=== PATIENT | male | born 1960 | race Caucasian/White ===

== ENCOUNTER → 2023-09-17 06:29 | Day surgery (SDC) | payer BC, SELFPAY | LOC: GI 06:29 | PROVIDERS: ATTENDING PHYSICIAN Internal Medicine; FAMILY PHYSICIAN Internal Medicine | DX: Z12.11 Encounter for screening for malignant neoplasm of colon (principal); D12.2 Benign neoplasm of ascending colon; D12.5 Benign neoplasm of sigmoid colon; K63.5 Polyp of colon; K64.4 Residual hemorrhoidal skin tags; K56.2 Volvulus; Z79.01 Long term (current) use of anticoagulants | CPT/HCPCS: 45385; 45380; 88305 ==

== ENCOUNTER 2023-10-07 21:09 | Emergency (ER) | payer BC, SELFPAY ==
[2023-10-07 21:09] VITALS: BMI 39.3
[2023-10-07 21:13] VITALS: BP 139/75
--- NOTE | 2023-10-07 22:47 | ED.SKININJ ---
HPI-Injury
<ROSY Oliva - Last Filed: 10/07/23 23:19>
General
Chief Complaint: Skin Problem
Source: patient and spouse
Exam Limitations: none
Time Seen by Provider: 10/07/23 21:59
Travel History
Have you had any contact with someone who has COVID-19?: No
Do you have any symptoms of coronavirus? Fever > 100 degrees, chills, cough, shortness of breath, sore throat, loss of taste or smell, muscle aches, or headache?: No
History of Present Illness-Injury
Initial Injury comments:
63 YO M with PMH of pre-diabetes managed with Metformin and HTN managed with medication presents here tonight for a cyst located on the patient's right breast. Pt states he noticed the cyst about 1 year ago. He was told it was a sebaceous cyst. One
year ago, it was about the size of a marble. Patient states the cyst started to bother him yesterday, causing him pain, which led him to see his well service derrick worker today at 1 p.m. The well service derrick worker drained his cyst in office. Pt states white/yellow pus
came out. The well service derrick worker informed the patient to report to the ED if the redness starts to spread. Pt states the redness has spread since the appointment. He denies fever, chills, or pain. Denies CP or SOB.
Review of Systems
<ROSY Oliva - Last Filed: 10/07/23 23:19>
Review of Systems
Constitutional: Reports no symptoms
EENT: Reports no symptoms
Cardiac: Reports no symptoms
ABD/GI: Reports no symptoms
: Reports no symptoms
Musculoskeletal: Reports no symptoms
Skin: Reports other (Right sided breast sebaceous cyst - Erythematous with mild pain )
Neurological: Reports no symptoms
Phy Exam
<ROSY Oliva - Last Filed: 10/07/23 23:19>
Physical Exam
Physical Exam:
Bleeding at site of right breast where cyst was drained, inflamed with surrounding erythema
Normal S1 and S2, breath sounds are clear and equal bilaterally
General Physical Exam
General Presentation: well appearing
General age: appears stated age
General Skin: warm
General Habitus: normal
General Mental: alert
General Hydration: appears well hydrated
Cardiovascular Exam
Cardiovascular Exam: regular rate/rhythm
Pulmonary Exam
Pulmonary Exam: lungs clear and no respiratory distress
Course
<Crystal Marquez [facility] - Last Filed: 10/07/23 23:19>
Orders/Labs/Results
Orders:
Orders
10/07/23 22:46
Basic Metabolic Panel Urgent
Complete Blood Count/With Diff Urgent
10/07/23 23:06
Vancomycin [Vancocin] 2,000 mg 0.9% Sodium Chloride 500 ml [Nss] 500 ml IV NOW
Abnormal Lab Results
10/07/23
22:46
RBC 4.30 L 10^6/uL
(4.70-6.10)
Hgb 12.9 L g/dL
(13.0-18.0)
Hct 37.1 L %
(39.0-52.0)
Absolute Monos (auto) 0.9 H 10^3/uL
(0.1-0.6)
Monocytes % 11.6 H %
(1.7-9.3)
BUN 36 H mg/dl
(9-20)
Creatinine 0.6 L mg/dL
(0.7-1.3)
10/07/23 22:46
10/07/23 22:46
Vital Signs
Initial and Last Documented VS:
Initial Vital Signs
Temp Pulse Resp BP Pulse Ox
98.0 F 75 18 139/75 98
10/07/23 21:13 10/07/23 21:13 10/07/23 21:13 10/07/23 21:13 10/07/23 21:13
Last Documented Vital Signs
Temp Pulse Resp BP Pulse Ox
98.0 F 75 18 122/71 93
10/07/23 21:13 10/07/23 21:13 10/07/23 21:13 10/08/23 00:00 10/08/23 00:45
<Shahla Weiss, DO - Last Filed: 10/08/23 01:12>
Orders/Labs/Results
Orders:
Orders
10/07/23 22:46
Basic Metabolic Panel Urgent
Complete Blood Count/With Diff Urgent
10/07/23 23:06
Vancomycin [Vancocin] 2,000 mg 0.9% Sodium Chloride 500 ml [Nss] 500 ml IV NOW
Abnormal Lab Results
10/07/23
22:46
RBC 4.30 L 10^6/uL
(4.70-6.10)
Hgb 12.9 L g/dL
(13.0-18.0)
Hct 37.1 L %
(39.0-52.0)
Absolute Monos (auto) 0.9 H 10^3/uL
(0.1-0.6)
Monocytes % 11.6 H %
(1.7-9.3)
BUN 36 H mg/dl
(9-20)
Creatinine 0.6 L mg/dL
(0.7-1.3)
10/07/23 22:46
10/07/23 22:46
Vital Signs
Initial and Last Documented VS:
Initial Vital Signs
Temp Pulse Resp BP Pulse Ox
98.0 F 75 18 139/75 98
10/07/23 21:13 10/07/23 21:13 10/07/23 21:13 10/07/23 21:13 10/07/23 21:13
Last Documented Vital Signs
Temp Pulse Resp BP Pulse Ox
98.0 F 75 18 122/71 93
10/07/23 21:13 10/07/23 21:13 10/07/23 21:13 10/08/23 00:00 10/08/23 00:45
<ROSY Oliva - Last Filed: 10/07/23 23:19>
MDM/Problems Addressed
Differential Diagnosis Includes:
Infected sebaceous cyst, cellulitis
MDM/Problems Addressed:
Erythematous, edematous right-breast cyst x 1 day, worsened since 1 p.m. today
Chronic conditions affecting care: DM and HTN
<ROSY Oliva - Last Filed: 10/07/23 23:19>
*Critical Care Note
Total Time (30-74mins, 75-104mins- exclusive of procedures): Not Applicable
<Shahla Weiss DO - Last Filed: 10/08/23 01:12>
*Pulse Oximetry
Patient hypoxic: no
ED Attending Note
<ROSY Oliva - Last Filed: 10/07/23 23:19>
-
Portions of this chart may have been created with voice recognition software.� Occasional wrong word or��sound alike� substitutions may have occurred due to the inherent limitations of voice recognition software.
<Shahla Weiss DO - Last Filed: 10/08/23 01:12>
ED Attending Note
Patient seen and examined by attending physician: Yes
I performed the substantive portion of visit, reviewed & personally made and approve the management plan that is documented in note by myself or COOKIE.: Yes
I performed a history and physical exam of patient and discussed management with resident, I reviewed resident's note and agree with documented findings and plan of care.: Yes
ED Attending Note:
This is a 63-year-old gentleman who has history of hypertension, hyperlipidemia, prediabetes, paroxysmal atrial fibrillation maintained on Eliquis.
He has history of somewhat chronic right medial breast nodule for which she underwent breast ultrasound over 1 year ago that demonstrated a simple appearing sebaceous cyst. Patient states more recently over the past 2 to 3 days he has had increased
pain, redness, swelling at this cyst area and was evaluated by well service derrick worker today where he underwent local aspiration of this inflamed sebaceous cyst and was started on doxycycline.
He was instructed by well service derrick worker to present to the ED if surrounding redness worsened.
He has not had a fever nor chills, overall feeling well but became concerned when right chest redness seems to have spread a bit, extending past his areola.
No history of similar episodes in the past. No prior history of skin abscesses nor known history of MRSA.
The plan is for a follow-up appointment with a well service derrick worker in 1 week's time and then eventual sebaceous cyst excision 1 week thereafter.
GENERAL: 63-year-old gentleman appears his stated age, bright and alert, pleasant, appears in no acute distress. Accompanied by his .
EYE: anicteric
NECK: Supple, nontender, no meningismus, no significant adenopathy.
ENT: oral mucosa is moist. No rhinorrhea.
CARDIAC: Regular rate and rhythm. no murmur.
LUNGS: Clear breath sounds bilaterally, no acute respiratory distress, no wheezes/rales/rhonchi
ABDOMEN: Soft, nondistended, without focal tenderness, no r/g, no cvat. normoactive BS.
NEUROLOGICAL: Alert and oriented x3, no focal neuro deficits. Gait is steady.
SKIN: Warm and dry, normal color, good turgor. Right medial breast has a 3.5 x 3.5 significantly firm indurated mildly tender subcutaneous nodule with moderate surrounding erythema that extends just below the right areola. Area is very minimally
warm to touch. There is a puncture wound mid aspect that is dry. No drainage. There is no lymphangitis, no axillary adenopathy.
MUSCULOSKELETAL: No C/C/E. peripheral pulses are full and equal b/l. No palpable tenderness.
PSYCH: Normal and appropriate interaction.
Patient presents with infected/inflamed sebaceous cyst right chest wall with local surrounding cellulitis.
Concern for rapidly progressing cellulitis versus local irritation/inflammation related to recent attempted aspiration.
Overall well in appearance, afebrile and does not report subjective fevers.
History of prediabetes so potential for increased risk of infection, increased risk of immune compromise.
As antibiotic was just started earlier today, it has been less than 12 hours since initiation of antibiotics. He has not technically failed outpatient antibiotics as yet.
Will check CBC, BMP and given IV dose of vancomycin for coverage of potential MRSA.
If labs are reassuring we will plan for discharge to home to continue oral antibiotics.
Recommend local warm compresses 4 times daily. Tylenol as needed for pain.
Strict return precautions including onset of fever or continued worsening/spreading of redness especially if worsening past 24 hours of antibiotics.
Discharge Plan
Departure
Patient Disposition: Home (Routine Discharge)
Date of Disposition: 10/08/23
Time of Disposition: 01:06
Patient with high blood pressure during this ER visit?: No
Discharge Problem:
Infected sebaceous cyst of skin, Abscess or cellulitis of chest wall
Instructions: Epidermal Cyst, Cellulitis (Skin Infection), Adult ED
Prescriptions:
No Action
diltiazem HCl [Cardizem CD] 120 mg capsule,extended release 24hr
120 mg PO DAILY Qty: 30 0RF
Eliquis 5 mg tablet
5 mg PO BID Qty: 60 0RF
Referrals:
Catracho Amezcua MD [Family Provider] -
Activity Restrictions/Additional Instructions:
Continue twice daily doxycycline as prescribed.
Apply warm compresses to chest wall, 30 to 40 minutes 4 times daily.
Follow-up with well service derrick worker next week as already scheduled.
If you develop a high fever or if chest wall redness seems to worsen, significantly spread, return to the ER for further evaluation.
Interventions
Interventions:
*General Assessment Last Done: 10/07/23 21:13
*ED COVID-19 Vaccine History Last Done: 10/07/23 22:50
Discharge Date and Time
Print Language: KINYARWANDA
[2023-10-07 22:58] LABS: % Basophils 0.3 % (0-2); % Eosinophils 1.8 % (0-6); % Immature Granulocytes 0.1 % (0-0.5); % Lymphocytes 23.8 % (20.5-51.1); % Monocytes 11.6 % (1.7-9.3); % Neutrophils 62.4 % (42.2-75.2); Absolute Eosinophils 0.1 10^3/uL (0-0.7); Absolute Lymphocytes 1.8 10^3/uL (1.2-3.4); Absolute Monocytes 0.9 10^3/uL (0.1-0.6); Absolute Neutrophils 4.8 10^3/uL (1.4-6.5); Hematocrit 37.1 % (39.0-52.0); Hemoglobin 12.9 g/dL (13.0-18.0); Mean Corp Hgb Conc. 34.8 g/dL (33.0-37.0); Mean Corpuscular Volume 86.3 fL (80.0-94.0); Mean Platelet Volume 9.9 fL (7.4-10.4); Nucleated Red Blood Cells % 0 % (-); Platelet Count 202 10^3/uL (130-400); Red Cell Dist. Width 12.2 % (11.5-14.5); White Blood Cell Count 7.7 10^3/uL (4.8-10.8)
[2023-10-07 23:00] VITALS: BP 121/69
[2023-10-07 23:12] LABS: Blood Urea Nitrogen 36 mg/dl (9-20); Calcium 9.9 mg/dl (8.4-10.2); Carbon Dioxide 26 mmol/L (22-30); Chloride 101 mmol/L (98-107); Estimated Creatinine Clearance > 125 ml/min; Glucose 97 mg/dl (70-99); Potassium 4.1 mmol/L (3.5-5.1); Sodium 137 mmol/L (135-145); eGFR > 60.00
[2023-10-07] MEDS: VANCOCIN 540 MG IV (23:16)
[2023-10-08] VITALS: BP 122/71
[2023-10-08 01:03] VITALS: BP 127/76
== END 2023-10-08 02:04 | disposition home or self-care (01) ==
LOC: EMR 21:09
PROVIDERS: EMERGENCY PHYSICIAN Emergency Medicine; FAMILY PHYSICIAN Internal Medicine
DX: L72.3 Sebaceous cyst (principal); L03.313 Cellulitis of chest wall; N60.01 Solitary cyst of right breast; I10 Essential (primary) hypertension; E78.00 Pure hypercholesterolemia, unspecified; E11.9 Type 2 diabetes mellitus without complications; I48.0 Paroxysmal atrial fibrillation; Z79.01 Long term (current) use of anticoagulants
CPT/HCPCS: 99283; 96365; 80048; 85025

== ENCOUNTER → 2023-11-24 10:27 | Outpatient (REF) | payer BC, SELFPAY | LOC: CLAB 10:27 | PROVIDERS: ATTENDING PHYSICIAN Surgery | DX: N63.11 Unspecified lump in the right breast, upper outer quadrant (principal) | CPT/HCPCS: 88307 ==

== ENCOUNTER → 2024-04-08 14:14 | Outpatient (REF) | payer BC, SELFPAY | LOC: UCDH 14:14 | PROVIDERS: ATTENDING PHYSICIAN Emergency Medicine; FAMILY PHYSICIAN Internal Medicine | DX: J22 Unspecified acute lower respiratory infection (principal) | CPT/HCPCS: 71046 ==

== ENCOUNTER 2024-09-18 08:51 | Emergency (ER) | payer BC, SELFPAY ==
[2024-09-18 08:55] VITALS: BP 142/77
--- NOTE | 2024-09-18 09:45 | ED.GENMED ---
History of Present Illness
General
Chief Complaint: Breathing Problem
Source: patient
Exam Limitations: none
Time Seen by Provider: 09/18/24 09:28
Nursing documentation reviewed up to this point in time: agreed with
History of Present Illness
History of Present Illness:
64 y/o M with h/o asthma only with URIs, never intubated
TA on CPAP
PAF on eliquis
here with 12 days URI sxs
congestion, sore throat, cough dry initially then now productive yellow/green and now brown mucus
no sob
but some wheezing, using albuterol inhaler [id number]
no fever
no chest pain
has tried OTC guaifenessin, coricidan, tea etc without relief
feels like he is getting worse
now with L ear pressure and has h/o ear infections
haering imparied, has hearing aides
Past History
Past History
ED Past Medical History: Asthma, GERD, HTN, Hypercholesterolemia and Other (kidney stones)
Social History
Tobacco: Non-smoker
Alcohol: None
Drug: None
Review of Systems
Review of Systems
Allergies reviewed?: Yes
All Other Systems: Not applicable
Phy Exam
Physical Exam
Physical Exam:
GENERAL: Alert , in no apparent distress
EYE: pupils equal and reactive
NECK: Supple no DOMINGA
ENT: o/p clr, mmm.
TM L full slightly pink; normal canal
no mastoid tenderness
R TM normal
CARDIAC: Regular rate and rhythm .
LUNGS: has wheeze with deep breathing and a spastic cough but otherwise lungs clear; the wheeze clears with cough
no tachypnea
SKIN: Warm and dry, skin intact.
MUSCULOSKELETAL: No edema, well perfused. neg otis's sign
PSYCH: Normal and appropriate interaction.
Scores
Heart Failure Risk
Heart Failure Risk Score: Not Applicable
Course
Orders/Labs/Results
Orders:
Orders
09/18/24 08:57
CR Chest - 2 Views Urgent
Comment:
Reason For Exam: cough
09/18/24 09:55
Albuterol Nebs [Ventolin Nebules] 2.5 mg INH R NOW STA
Doxycycline [Vibramycin] 100 mg PO NOW STA
Prednisone [Deltasone] 50 mg PO NOW STA
Vital Signs
Initial and Last Documented VS:
Initial Vital Signs
Temp Pulse Resp BP Pulse Ox
36.5 C 82 16 142/77 100
09/18/24 08:55 09/18/24 08:55 09/18/24 08:55 09/18/24 08:55 09/18/24 08:55
Last Documented Vital Signs
Temp Pulse Resp BP Pulse Ox
36.5 C 71 16 113/73 99
09/18/24 08:55 09/18/24 10:45 09/18/24 10:45 09/18/24 10:06 09/18/24 10:45
MDM/Problems Addressed
Differential Diagnosis Includes:
bronchitis, asthma, pneuomina, ear infection
MDM/Problems Addressed:
64 y/o M
with URI x 2 weeks
spastic cough, productive
congestion
L ear pain/fullness/muffled hearing
wears hearing aides
tried OTC meds and his inahler for asthma without rleief
coughing up brownihs yellow stuff
no fever
well appearing
no chest pain
no tachycardia
normal pulse ox
lugns with occ spastic cough and occ wheeze which clears
cxr indep reviewed, neg for infitlrate
given length of time of symptoms, will cover with abx
doxy has worked for him previously
steroids
pt given neb treatment, feels much better
d/c home
*Critical Care Note
Total Time (30-74mins, 75-104mins- exclusive of procedures): Not Applicable
ED Attending Note
-
Portions of this chart may have been created with voice recognition software.� Occasional wrong word or��sound alike� substitutions may have occurred due to the inherent limitations of voice recognition software.
Discharge Plan
Departure
Patient Disposition: Home (Routine Discharge)
Date of Disposition: 09/18/24
Time of Disposition: 10:39
Patient with high blood pressure during this ER visit?: No
Condition: Fair
Covid-19: Not Applicable
Discharge Problem:
Acute bronchitis
Instructions: Acute Bronchitis, Adult (DC)
Prescriptions:
New
prednisone 20 mg tablet
40 mg PO DAILY Qty: 8 0RF
doxycycline hyclate 100 mg tablet
100 mg PO BID Qty: 14 0RF
No Action
diltiazem HCl [Cardizem CD] 120 mg capsule,extended release 24hr
120 mg PO DAILY Qty: 30 0RF
Eliquis 5 mg tablet
5 mg PO BID Qty: 60 0RF
Referrals:
Catracho Amezcua MD [Family Provider] -
Activity Restrictions/Additional Instructions:
You have symptoms of bronchitis. It is usually viral but sometimes can linger and become bacterial so we are treating you with doxycycline twice a day for 7 days. You should also use prednisone 2 tablets in the morning starting tomorrow once a day
for 4 more days. You can use your inhaler 2 puffs every 4-6 hours for cough.
Your symptoms should improve in the next couple of days. If you are feeling worse, coughing up blood, having a new fever, chest pain or shortness of breath please return. While you are on the prednisone because you are on Eliquis you should
probably prevent stomach problems by taking a dose of Prilosec or Pepcid which is [id number] to help protect your stomach
Interventions
Interventions:
*Risk Screen - Suicide Last Done: 09/18/24 09:59
*General Assessment Last Done: 09/18/24 09:59
*Neglect/Abuse Screening Last Done: 09/18/24 09:59
*ED- Fall Risk Assessment Last Done: 09/18/24 09:59
*ED COVID-19 Vaccine History Last Done: 09/18/24 09:59
*Nursing Disposition Last Done: 09/18/24 10:50
ED- Cardiac Assessment Last Done: 09/18/24 10:02
ED- Pulmonary Assessment Last Done: 09/18/24 10:45
Discharge Date and Time
Discharge Date/Time: 09/18/24 10:51
Print Language: SWISS
--- NOTE | 2024-09-18 09:51 | EDRN ---
Miguel GALLEGO in room w/ pt.
[2024-09-18 09:59] VITALS: BMI 35.8
[2024-09-18] MEDS: DELTASONE 50 MG PO (10:03)
[2024-09-18] MEDS: VIBRAMYCIN 100 MG PO (10:03)
[2024-09-18 10:06] VITALS: BP 113/73
[2024-09-18] MEDS: VENTOLIN NEBULES 2.5 MG INH (10:06)
== END 2024-09-18 10:51 | disposition home or self-care (01) ==
LOC: EMR 08:51
PROVIDERS: EMERGENCY PHYSICIAN Emergency Medicine; FAMILY PHYSICIAN Internal Medicine
DX: J45.909 Unspecified asthma, uncomplicated (principal); K21.9 Gastro-esophageal reflux disease without esophagitis; I10 Essential (primary) hypertension; E78.00 Pure hypercholesterolemia, unspecified; G47.33 Obstructive sleep apnea (adult) (pediatric); J20.9 Acute bronchitis, unspecified; Z79.01 Long term (current) use of anticoagulants; Z87.442 Personal history of urinary calculi
CPT/HCPCS: 99283; 94640; 71046

== ENCOUNTER 2025-02-01 09:20 | Emergency (ER) | payer BC, SELFPAY ==
[2025-02-01 09:30] VITALS: BP 119/79
--- NOTE | 2025-02-01 10:59 | ED.GENMED ---
History of Present Illness
General
Chief Complaint: Extremity Pain (non-traumatic)
Source: patient
Exam Limitations: none
Time Seen by Provider: 02/01/25 10:59
Nursing documentation reviewed up to this point in time: agreed with
History of Present Illness
History of Present Illness:
The patient is a very pleasant 65-year-old man who reports redness and swelling of his right upper arm ever since getting his COVID-vaccine 5 days ago. Patient denies fevers and chills. His is particularly concerned because the redness is
just continuing to spread downward. There is no involvement of the actual shoulder, elbow or wrist. Patient report he has a history of a skin infection several years ago and had a get ' it drained' on his chest area but is not sure if it was MRSA.
Patient denies weakness and numbness of left arm. He denies chest pain. Patient currently takes Eliquis
Past History
Past History
ED Past Medical History: Arrthythmia, Asthma, GERD, HTN, Hypercholesterolemia and Other (kidney stones)
ED Past Surgical History: Other
Social History
Tobacco: Non-smoker
Alcohol: None
Drug: None
Personal:
Living: with family
Employment: Other
Family History
Family History: Other
Review of Systems
Review of Systems
Allergies reviewed?: Yes
Other source history: family
All Other Systems: ROS reviewed and negative except as documented in HPI and ROS
Constitutional: Reports no symptoms
EENT: Reports no symptoms
Respiratory: Reports no symptoms
Cardiac: Reports no symptoms
ABD/GI: Reports no symptoms
: Reports no symptoms
Musculoskeletal: Reports no symptoms
Skin: Reports other
Neurological: Reports no symptoms
Endocrine: Reports no symptoms
Hematologic/Lymphatic: Reports no symptoms
Psychiatric: Reports no symptoms
Phy Exam
Physical Exam
Physical Exam:
Physical Exam
General: no apparent distress, not acutely ill. Very well-appearing
Neck: supple.
Heart: s1/s2 regular rate and rhythm, no murmur. equal radial pulses.
Lungs: no acute respiratory distress. clear bilaterally
Abdomen: Soft, nontender
Neuro: alert and oriented. no focal neurological deficits
Skin: Erythematous and slightly warm raised area of skin along left lateral upper arm. Soft compartments and strong pulses of bilateral upper extremities
Psychiatric: well kept. interactive and cooperative
Extremities: no edema. no calf tenderness. negative homans. good distal pulses
Course
Orders/Labs/Results
Orders:
Orders
02/01/25 11:49
Doxycycline [Vibramycin] 100 mg PO NOW STA
Vital Signs
Initial and Last Documented VS:
Initial Vital Signs
Temp Pulse Resp BP Pulse Ox
97.9 F 78 16 119/79 99
02/01/25 09:30 02/01/25 09:30 02/01/25 09:30 02/01/25 09:30 02/01/25 09:30
Last Documented Vital Signs
Temp Pulse Resp BP Pulse Ox
97.9 F 78 16 119/79 99
02/01/25 09:30 02/01/25 09:30 02/01/25 09:30 02/01/25 09:30 02/01/25 11:00
MDM/Problems Addressed
Differential Diagnosis Includes:
Left upper arm cellulitis, inflammatory response to vaccine
MDM/Problems Addressed:
Patient presents with acute red and warm skin of left upper arm
Chronic conditions affecting care: Arrhythmia
Acute Exacerbation and/or Progression of Chronic Illness:
Patient presents with normal sounding heart rhythm. A-fib is not present at this time
*Pulse Oximetry
SaO2: 99
Oxygen Mode of Delivery: Room air
Patient hypoxic: no
*EKG
Interpreted by ED Provider?: NA
*Digital Computer Systems Analyst Interpretation
Rate: Digital Computer Systems Analyst- N/A
*Critical Care Note
Total Time (30-74mins, 75-104mins- exclusive of procedures): Not Applicable
Data Reviewed
Review of Other/Old Records Reveals: Labs (Labs reviewed from 09/2023)
Source: patient and family
Patient Management
Social determinants of health affecting care: Living situation and Strong social support
Escalation/DeEscalation of care consider admission/obs:
Patient appears extremely well and comfortable. There is no sign of fluctuance or abscess. Given that patient is having persistent erythema and warmth of skin, decision made to treat patient for possible cellulitis with antibiotic. There is no
sign of sepsis.
ED Attending Note
-
Portions of this chart may have been created with voice recognition software.� Occasional wrong word or��sound alike� substitutions may have occurred due to the inherent limitations of voice recognition software.
Discharge Plan
Departure
Patient Disposition: Home (Routine Discharge)
Date of Disposition: 02/01/25
Time of Disposition: 11:50
Patient with high blood pressure during this ER visit?: No
Condition: Good
Covid-19: Not Applicable
Discharge Problem:
Cellulitis of left upper arm
Instructions: Cellulitis (skin infection) in adults - ED (DC)
Prescriptions:
New
doxycycline hyclate 100 mg capsule
100 mg PO BID Qty: 11 0RF
No Action
diltiazem HCl [Cardizem CD] 120 mg capsule,extended release 24hr
120 mg PO DAILY Qty: 30 0RF
Eliquis 5 mg tablet
5 mg PO BID Qty: 60 0RF
prednisone 20 mg tablet
40 mg PO DAILY Qty: 8 0RF
doxycycline hyclate 100 mg tablet
100 mg PO BID Qty: 14 0RF
Referrals:
Catracho Amezcua MD [Family Provider, Internal Medicine]
Activity Restrictions/Additional Instructions:
It may take 24 hours for the redness to improved. Please return to the ED if the redness spreads or if you get a fever
Interventions
Interventions:
*Risk Screen - Suicide Last Done: 02/01/25 12:18
*General Assessment Last Done: 02/01/25 12:18
*Neglect/Abuse Screening Last Done: 02/01/25 12:18
*ED- Fall Risk Assessment Last Done: 02/01/25 12:18
*ED COVID-19 Vaccine History Last Done: 02/01/25 12:18
*ED Influenza Vaccine History Last Done: 02/01/25 12:18
*Nursing Disposition Last Done: 02/01/25 12:18
ED-Skin Assessment Last Done: 02/01/25 12:18
ED-Musculoskeletal Assessment Last Done: 02/01/25 12:18
Discharge Date and Time
Discharge Date/Time: 02/01/25 12:20
Print Language: SENEGALESE
[2025-02-01] MEDS: VIBRAMYCIN 100 MG PO (12:18)
== END 2025-02-01 12:20 | disposition home or self-care (01) ==
LOC: EMR 09:20
PROVIDERS: EMERGENCY PHYSICIAN Emergency Medicine; FAMILY PHYSICIAN Internal Medicine
DX: L03.114 Cellulitis of left upper limb (principal); I10 Essential (primary) hypertension; E78.00 Pure hypercholesterolemia, unspecified; J45.909 Unspecified asthma, uncomplicated; K21.9 Gastro-esophageal reflux disease without esophagitis; Z79.01 Long term (current) use of anticoagulants
CPT/HCPCS: 99283